=== PATIENT | female | born 1955 ===

== ENCOUNTER 2018-01-05 07:54 | Day surgery (SDC) | payer MEDICAID ==
[2018-01-05] MEDS ORDERED: Lactated Ringer's 500 ML IV ONE (08:33)
[2018-01-05] MEDS ORDERED: Propofol 10 mg/ml Inj (20 ML) ONE ×2 (10:35→11:02)
[2018-01-05 11:19] VITALS: TEMP 96.8
[2018-01-05 11:38] VITALS: BP 110/80; PULSE 80; RESP 14; O2SAT 97
== END 2018-01-05 12:00 | disposition home or self-care (01) ==
LOC: H.ENDO 07:54
PROVIDERS: ATTEND Internal Medicine Gastroenterology
DX: Z12.11 Encounter for screening for malignant neoplasm of colon (principal); K64.8 Other hemorrhoids; K62.1 Rectal polyp
CPT/HCPCS: 45380; 88305; J2001; J2704; J7120